=== PATIENT | male | born 1950 | race Caucasian/White ===

== ENCOUNTER 2019-01-02 07:40 | Inpatient (IN) ==
[2018-12-30 15:37] LABS: Appearance,Urine HAZY; Bilirubin,Urine NEG (NEG); Color,Urine YELLOW; Glucose,Urine (UA) NEGATIVE (NEG); Leukocyte Esterase,Urine NEG /uL (NEG); Protein,Urine NEG (NEG); Specific Gravity,Urine 1.008 (1.000-1.035); Urine Blood NEG mg/dL (<0.03); Urobilinogen,Urine NEG (NEG)
[~2019-01-02 07:40] MED LIST: 0.9 % SODIUM CHLORIDE 9 ML, KETOROLAC 30 MG, ROPIVACAINE HCL/PF 49.5 ML, EPINEPHrine 0.... IJ SCH; ceFAZolin 1 GM VIAL IV SCH
[2019-01-02] MEDS ORDERED: GENTAMICIN SULFATE 800 MG/20 ML VIAL IR ONE (10:17)
[2019-01-02] MEDS ORDERED: PROPOFOL 200 MG/20 ML VIAL IV ONE (10:55)
[2019-01-02] MEDS ORDERED: ROPIVACAINE HCL/PF 20 ML VIAL IJ ONE (10:55)
[2019-01-02] MEDS ORDERED: TRANEXAMIC ACID 1,000 MG/10 ML VIAL IV ONE ×2 (10:55→13:23)
[2019-01-02] MEDS ORDERED: DEXAMETHASONE 4 MG/ML VIAL IV ONE (10:55)
[2019-01-02] MEDS ORDERED: LIDOCAINE HCL/PF 100 MG/5 ML SYRINGE IV ONE (10:55)
[2019-01-02] MEDS ORDERED: ePHEDrine 50 MG/ML AMPUL IV ONE (10:55)
[2019-01-02] MEDS ORDERED: MIDAZOLAM 2 MG/2 ML VIAL IV ONE (10:55)
[2019-01-02] MEDS ORDERED: NALOXONE HCL 0.4 MG/ML VIAL IV PRN (12:44)
[2019-01-02] MEDS ORDERED: MEPERIDINE 25 MG/ML SYRINGE IV PRN (12:44)
[2019-01-02] MEDS ORDERED: ACETAMINOPHEN 1,000 MG/100 ML BOTTLE IV ONE (12:44)
[2019-01-02] MEDS ORDERED: fentaNYL 100 MCG/2 ML VIAL IV PRN (12:44)
[2019-01-02] MEDS ORDERED: FLUMAZENIL 0.1 MG/ML ML IV PRN (12:44)
[2019-01-02] MEDS ORDERED: PROMETHAZINE 25 MG/ML VIAL IV PRN (12:44)
[2019-01-02] MEDS ORDERED: BENZOCAINE/MENTHOL 1 LOZENGE PO PRN ×2 (12:44→13:23)
[2019-01-02] MEDS ORDERED: LACTATED RINGERS 250 ML IV PRN (12:44)
[2019-01-02] MEDS ORDERED: diphenhydrAMINE 50 MG/ML VIAL IV PRN (12:44)
[2019-01-02] MEDS ORDERED: IPRATROPIUM/ALBUTEROL 3 ML AMPUL.NEB NEB PRN (12:44)
[2019-01-02] MEDS ORDERED: ONDANSETRON 4 MG/2 ML VIAL IV PRN ×2 (12:44→13:23)
[2019-01-02] MEDS ORDERED: LACTATED RINGERS 1,000 ML IV SCH (12:45)
[2019-01-02] MEDS ORDERED: FLEETS ADULT ENEMA PR PRN (13:23)
[2019-01-02] MEDS ORDERED: ACETAMINOPHEN 325 MG TABLET PO PRN (13:23)
[2019-01-02] MEDS ORDERED: POLYETHYLENE GLYCOL 3350 17 GM PACKET PO PRN (13:23)
[2019-01-02] MEDS ORDERED: METHOCARBAMOL 1,000 MG/10 ML VIAL IV PRN (13:23)
[2019-01-02] MEDS ORDERED: BISACODYL 10 MG SUPP.RECT PR PRN (13:23)
[2019-01-02] MEDS ORDERED: MAGNESIUM HYDROXIDE 30 ML ORAL.SUSP PO PRN (13:23)
--- NOTE | 2019-01-02 14:15 | XRay Report ---
CLINICAL INFORMATION: Post-op total knee COMPARISON: None. FINDINGS: Total knee prostheses is anatomically aligned. No osseous abnormality. Soft tissue swelling seen as expected IMPRESSION: Negative Interpreted and Authenticated by: Nasir Samson 01/02/19
[2019-01-02] MEDS: 0.9 % SODIUM CHLORIDE 10 ML SYRINGE IV SCH ×2 (14:37→21:25)
[2019-01-02] MEDS: 0.9 % SODIUM CHLORIDE 1,000 ML IV SCH (14:37)
[2019-01-02] MEDS: HYDROcodone/APAP 10/325MG TABLET PO PRN ×3 (15:05→23:50)
[2019-01-02] MEDS: ceFAZolin 1 GM VIAL IV SCH (18:17)
[2019-01-02] MEDS ORDERED: SENNOSIDES 1 TABLET PO SCH (21:00)
[2019-01-02] MEDS ORDERED: OMEPRAZOLE 20 MG CAPSULE PO SCH (21:00)
[2019-01-02] MEDS: DOCUSATE SODIUM 100 MG CAPSULE PO SCH (21:25)
[2019-01-02] MEDS: APIXABAN 5 MG TABLET PO SCH (21:25)
[2019-01-03] MEDS: ceFAZolin 1 GM VIAL IV SCH (02:23)
[2019-01-03] MEDS: HYDROcodone/APAP 10/325MG TABLET PO PRN ×3 (03:54→12:12)
[2019-01-03] MEDS: 0.9 % SODIUM CHLORIDE 1,000 ML IV SCH ×2 (04:12→16:19)
[2019-01-03] MEDS: 0.9 % SODIUM CHLORIDE 10 ML SYRINGE IV SCH ×2 (06:04→16:19)
--- NOTE | 2019-01-03 07:30 | Operative Note ---
DATE OF OPERATION: 01/02/2019 PREOPERATIVE DIAGNOSIS: Degenerative joint disease of the left knee. POSTOPERATIVE DIAGNOSIS: Degenerative joint disease of the left knee. OPERATION: Left Estiven knee replacement. SURGEON: Justin De Dios MD APPOINTMENT SCHEDULER: David العراقي PA-C ANESTHESIA: General. TOURNIQUET TIME: 1 hour 42 minutes. ESTIMATED BLOOD LOSS: 100 mL SUMMARY OF PROCEDURE: General anesthesia was attained. The patient was in about 10 degrees of varus. She also had about a 10 degree flexion contracture. After prepping and draping, the tourniquet was put up. A midline incision was made from the quadriceps to the tibial tubercle. This was taken down sharply to the quadriceps and the medial retinaculum. These were split longitudinally. The patella showed exuberant spur formation. These were removed with a saw, osteotomes and rongeurs. We then did a patellar resection bringing the patella from the 26 mm thickness down to 15 using calipers. The patella was mobilized laterally. The arrays were placed. Two stab incisions were made in the proximal tibia and two in the distal femur. These were opened with blunt dissection and 2 unicortical pins were placed in each bone followed by the arrays. The knee was rotated to confirm center of rotation of the hip. We then checked anatomic landmarks on the femur to complete the registry of the femur and likewise on the tibia, and completed the registry on the tibia. Cuts were then made after balancing the flexion and extension gap. There was still some tightness noted medially. The cuts were made but I then did a distal medial collateral ligament release. After completion of this, we were able to confirm balancing of the flexion and extension gaps. This was confirmed using the robotic technology. The components were next cemented in. We were able to get full extension. The leg was now in about 5 degrees of valgus. These numbers were confirmed using the robotic technology. Excess cement was removed. The tourniquet was let down. All bleeding points were coagulated. The femur sized to a 7, the tibia to a 6, the insert to 10 mm and the patella to 35. The no touch test showed a lateral release was not needed. The quadriceps and medial retinaculum were closed with 4 sutures of buried #2 FiberWire and then a running locking 0 Maxon. The subcutaneous tissue was closed with buried interrupted 2-0 Monocryl and the skin was closed with a combination of mattress sutures of 2-0 nylon and sarah. A sterile compressive dressing was applied. The sponge and needle count was correct. The patient tolerated the procedure well and was taken to the recovery room in stable condition. [email or web address] Job ID: [id number] Doc ID: [id number] Justin De Dios MD
[2019-01-03] MEDS: DOCUSATE SODIUM 100 MG CAPSULE PO SCH (07:58)
[2019-01-03] MEDS: APIXABAN 5 MG TABLET PO SCH (07:59)
[2019-01-03] MEDS ORDERED: DILTIAZEM 180 MG CAP.XL.24H PO SCH (09:00)
--- NOTE | 2019-01-03 09:42 | Discharge Summary ---
Providers - Providers Patient information: Note initiated : 01/03/19 at 9:39 am Service Date, if different from initiated Date: [] Patient: Tato Love 68 y/o M admitted on 01/02/19 for Left Robotic Total Knee Arthroplasty. Chief Complaint: [] Date of admission: 01/02/19 Discharge date: 01/03/19 Attending physician: Justin De Dios Hospitalization Hospital course: l knee replacement 01/02. No complications. Ambulatory, tolerable pain POD 1. Home on eliquis, PT, hydrocodone Discharge diagnosis: L total knee replacement Secondary discharge diagnosis: atrial fibrillation Procedures: left TKR Exam - Exam Clean and dry: Yes Weight bearing status: full Ortho Discharge - TKA - Patient Instructions Diet: Regular Diet Activity: activity as tolerated Total Knee Protocol: For Total Knee: Start ROM HEIDY with stationary bike or rocking chair. Work on gaining full extension of knee. Posterior dislocation precautions provided. Hip abductor strengthening and gait training instructions provided. Apply Cryocuff as instructed. Dressing Care: May shower in 2 days - Follow Up Plan Follow Up Appointments: David العراقي PA-C [Physician Line Service Attendant] - 01/15/19 10:40 am Disposition: Home, Self-Care Prognosis: Good Rehab Potential: Good I certify that the patient requires SNF services: No Overall status at discharge: patient is not back to baseline - Orders For Discharge Prescriptions: HYDROcodone/APAP 10/325MG [[place] 10-325Mg] 1 - 2 tab PO Q4HP PRN #60 tab PRN Reason: Pain Level 3-6 Additional Discharge Orders: Physical Therapy at Discharge - TKA Location: None Selected Toilet Riser Discharge Order Location: None Selected Walker Location: None Selected Pending Studies Resuscitation Status Full Code Diet Regular Diet Start SunJan 02 Dinner Hydrocodone Bitart/Acetaminophen ([place] 10/325mg) 0 tab PO Q4HP PRN PRN Reason: PAIN LEVEL 3-6 Last Admin: 01/03/19 07:59 Dose: 2 tab Documented by: Admin: 01/03/19 03:54 Dose: 2 tab Documented by: Admin: 01/02/19 23:50 Dose: 2 tab Documented by: Admin: 01/02/19 19:34 Dose: 2 tab Documented by: Admin: 01/02/19 15:05 Dose: 2 tab Documented by: BLANCA Apixaban (Eliquis) 5 mg PO BID [facility] Last Admin: 01/03/19 07:59 Dose: 5 mg Documented by: Admin: 01/02/19 21:25 Dose: 5 mg Documented by: SARAH Diltiazem HCl (Cardizem Cd) 360 mg PO DAILY [facility] Last Admin: 01/03/19 07:58 Dose: 360 mg Documented by: BLAISE Docusate Sodium (Colace) 100 mg PO BID [facility] Last Admin: 01/03/19 07:58 Dose: 100 mg Documented by: Admin: 01/02/19 21:25 Dose: 100 mg Documented by: SARAH Sodium Chloride (Sodium Chloride 0.9%) 1,000 mls @ 75 mls/hr IV .[id number] [facility] Last Admin: 01/03/19 04:12 Dose: 75 mls/hr Documented by: Infusion: 01/03/19 03:57 Dose: 75 mls/hr Documented by: Admin: 01/02/19 14:37 Dose: 75 mls/hr Documented by: BLANCA Magnesium Hydroxide (Milk Of Magnesia) 30 ml PO BIDP PRN PRN Reason: Constipation Last Admin: 01/03/19 07:58 Dose: 30 ml Documented by: BLAISE Omeprazole (Prilosec) 20 mg PO HS [facility] Last Admin: 01/02/19 21:25 Dose: 20 mg Documented by: SARAH Polyethylene Glycol (Miralax) 17 gm PO DAILYP PRN PRN Reason: Constipation Last Admin: 01/03/19 07:58 Dose: 17 gm Documented by: BLAISE Senna (Senokot) 2 tab PO HS [facility] Last Admin: 01/02/19 21:25 Dose: 2 tab Documented by: SARAH Sodium Chloride (Saline Flush) 10 ml IV Q8 [facility] Last Admin: 01/03/19 06:04 Dose: Not Given Documented by: Admin: 01/02/19 21:25 Dose: Not Given Documented by: Admin: 01/02/19 14:37 Dose: Not Given Documented by: BLANCA Shift Summary 01/03/19 05:09 Shift Summary by Raheem Staley Pt has rested a bit tonight. LT knee pain well controlled w/ PRN Q4hr [place] 10 (2) PO - last dose given @ 0355. Cryo-cuff recharged frequently the 1st half of the shift - currently off. AV boots on while in bed. Mateo wrap LT leg - C,D,I. NS infusing @ 75ml/hr to his LT F/A. VS - WNL on R.A.. He has been up AMB in [place] to Nsg desk & back to bed x1, as well as to & from BR - gait mod stable w/ FWW & SBA. He has been voiding per urinal - last PVR scan @ 0355 was 99ml - no further scans needed. Pt is A&O x4, calm, pleasant, & cooperative. Initialized on 01/03/19 05:09 - END OF NOTE
== END 2019-01-03 12:45 | disposition home or self-care (01) | DRG 470 ==
LOC: MEDSUR 07:40
PROVIDERS: ADMIT Orthopaedic Surgery Foot and Ankle Surgery; ATTEND Orthopaedic Surgery Foot and Ankle Surgery

== ENCOUNTER 2019-10-02 08:40 | Inpatient (IN) ==
[2019-09-26 12:11] LABS: Appearance,Urine HAZY; Bilirubin,Urine NEG (NEG); Color,Urine AMBER; Culture Indicated,Urine NO; Glucose,Urine (UA) NEGATIVE (NEG); Ketones,Urine NEG (NEG); Leukocyte Esterase,Urine NEG /uL (NEG); Nitrate,Urine NEG (NEG); Protein,Urine NEG (NEG); Specific Gravity,Urine 1.019 (1.000-1.035); Urine Blood NEG mg/dL (<0.03); Urobilinogen,Urine NEG (NEG)
[2019-09-26 13:18] LABS: Basophils # (Auto) 0.1 K/mcL (0.0-0.3); Basophils % (Auto) 1.2 % (0.0-2.0); Eosinophils # (Auto) 0.5 K/mcL (0.0-0.7); Eosinophils % (Auto) 6.8 % (0.0-7.0); Granulocytes % (Auto) 46.9 % (38.0-78.0); Hemoglobin 15.6 g/dL (13.5-16.5); Lymphocytes # (Auto) 2.6 K/mcL (1.5-4.8); Lymphocytes % (Auto) 35.1 % (15.5-49.0); Mean Corpuscular HGB Conc 33.9 g/dL (31.0-36.0); Mean Platelet Volume 7.7 fL (7.4-10.4); Monocytes # (Auto) 0.7 K/mcL (0.1-0.9); Platelet Count 264 K/mcL (140-440); RBC 4.69 M/mcL (4.50-5.90); Red Cell Distribution Width 13.4 % (11.5-14.5); WBC 7.4 K/mcL (4.5-11.0)
[2019-09-26 14:06] LABS: INR 1.2 (0.9-1.1); Prothrombin Time 15.2 sec (11.9-14.5)
[2019-09-26 14:40] LABS: Blood Urea Nitrogen 19 mg/dl (8-23); Calcium 9.7 mg/dl (8.6-10.4); Carbon Dioxide 21 mmol/L (22-30); Chloride 102 mmol/L (96-108); Glomerular Filtration Rate 91; Glucose 101 mg/dL (70-105)
[~2019-10-02 08:40] MED LIST changes: +CELECOXIB 200 MG CAPSULE PO SCH; +IPRATROPIUM/ALBUTEROL 3 ML AMPUL.NEB NEB PRN; +PREGABALIN 75 MG CAPSULE PO SCH; +SCOPOLAMINE 1 PATCH PATCH TOPICAL PRN; -ceFAZolin 1 GM VIAL IV SCH; +ceFAZolin 3 GM in DEXTROSE 5% IN WATER 50 ML IV SCH; +oxyCODONE 10 MG TAB.ER.12H PO SCH
[2019-10-02] MEDS ORDERED: PNEUMOCOCCAL 23-VAL P-SAC VAC 0.5 ML SYRINGE IM ONE (09:33)
[2019-10-02] MEDS ORDERED: KETAMINE 100 MG/ML ML IV ONE (12:41)
[2019-10-02] MEDS ORDERED: LIDOCAINE HCL/PF 100 MG/5 ML SYRINGE IV ONE (12:41)
[2019-10-02] MEDS ORDERED: GLYCOPYRROLATE 0.2 MG/ML VIAL IV ONE (12:41)
[2019-10-02] MEDS ORDERED: PHENYLEPHRINE 10 MG/ML VIAL IV ONE (12:41)
[2019-10-02] MEDS ORDERED: ROPIVACAINE HCL/PF 20 ML VIAL IJ ONE (12:41)
[2019-10-02] MEDS ORDERED: KETOROLAC 30 MG/ML VIAL IV ONE (12:41)
[2019-10-02] MEDS ORDERED: ePHEDrine 50 MG/ML AMPUL IV ONE (12:41)
[2019-10-02] MEDS ORDERED: ONDANSETRON 4 MG/2 ML VIAL IV ONE (12:41)
[2019-10-02] MEDS ORDERED: PROPOFOL 200 MG/20 ML VIAL IV ONE (12:41)
[2019-10-02] MEDS ORDERED: GENTAMICIN SULFATE 800 MG/20 ML VIAL IR ONE (13:09)
[2019-10-02] MEDS ORDERED: IPRATROPIUM/ALBUTEROL 3 ML AMPUL.NEB NEB PRN (14:48)
[2019-10-02] MEDS ORDERED: NALOXONE HCL 0.4 MG/ML VIAL IV PRN (14:48)
[2019-10-02] MEDS ORDERED: FLUMAZENIL 0.1 MG/ML ML IV PRN (14:48)
[2019-10-02] MEDS ORDERED: LACTATED RINGERS 250 ML IV PRN (14:48)
[2019-10-02] MEDS ORDERED: BENZOCAINE/MENTHOL 1 LOZENGE PO PRN ×2 (14:48→14:49)
[2019-10-02] MEDS ORDERED: fentaNYL 100 MCG/2 ML VIAL IV PRN (14:48)
[2019-10-02] MEDS ORDERED: METOPROLOL TARTRATE 5 MG/5 ML VIAL IV PRN (14:48)
[2019-10-02] MEDS ORDERED: LABETALOL 5 MG/ML ML IV PRN (14:48)
[2019-10-02] MEDS ORDERED: ACETAMINOPHEN 1,000 MG/100 ML BOTTLE IV ONE ×2 (14:48→15:00)
[2019-10-02] MEDS ORDERED: METHOCARBAMOL 1,000 MG/10 ML VIAL IV PRN (14:48)
[2019-10-02] MEDS ORDERED: TRANEXAMIC ACID 1,000 MG/10 ML VIAL IV ONE (14:49)
[2019-10-02] MEDS ORDERED: MAGNESIUM HYDROXIDE 30 ML ORAL.SUSP PO PRN (14:49)
[2019-10-02] MEDS ORDERED: ACETAMINOPHEN 325 MG TABLET PO PRN (14:49)
[2019-10-02] MEDS ORDERED: POLYETHYLENE GLYCOL 3350 17 GM PACKET PO PRN (14:49)
[2019-10-02] MEDS ORDERED: BISACODYL 10 MG SUPP.RECT PR PRN (14:49)
[2019-10-02] MEDS ORDERED: METHOCARBAMOL 750 MG TABLET PO PRN (14:49)
[2019-10-02] MEDS ORDERED: ONDANSETRON 4 MG/2 ML VIAL IV PRN (14:49)
--- NOTE | 2019-10-02 14:57 | Brief Operative Note ---
Date of procedure: 10/02/19 Pre-op diagnosis: djd right knee Post-op diagnosis: same Procedure: AARON r tkr Grafts/Implants: Yes (triathlon knee) Anesthesia: GETA Complications: none Surgeon: Justin De Dios Theatrical Trouper: David العراقي Estimated blood loss (cc): 250 Tourniquet Time (Minutes): 90 Specimens Removed/Pathology: none sent Condition: stable Disposition: PACU
[2019-10-02] MEDS ORDERED: LACTATED RINGERS 1,000 ML IV SCH (15:00)
[2019-10-02] MEDS: 0.9 % SODIUM CHLORIDE 1,000 ML IV SCH (16:01)
--- NOTE | 2019-10-02 16:29 | XRay Report ---
CLINICAL INFORMATION: Post-op total knee. COMPARISON: None. FINDINGS: Total knee prostheses is anatomically aligned. No osseous abnormality. Periarticular gas and soft tissue swelling seen as expected IMPRESSION: Negative Interpreted and Authenticated by: Nasir Samson 10/02/19
[2019-10-02] MEDS: HYDROcodone/APAP 10/325MG TABLET PO PRN ×2 (18:41→23:01)
[2019-10-02] MEDS ORDERED: ASPIRIN 81 MG TAB.CHEW PO SCH (21:00)
[2019-10-02] MEDS ORDERED: OMEPRAZOLE 20 MG CAPSULE PO SCH (21:00)
[2019-10-02] MEDS ORDERED: SENNOSIDES 1 TABLET PO SCH (21:00)
[2019-10-02] MEDS: APIXABAN 5 MG TABLET PO SCH (21:44)
[2019-10-02] MEDS: DOCUSATE SODIUM 100 MG CAPSULE PO SCH (21:44)
[2019-10-02] MEDS: ceFAZolin 1 GM VIAL IV SCH (21:44)
[2019-10-02] MEDS: 0.9 % SODIUM CHLORIDE 10 ML SYRINGE IV SCH (22:21)
[2019-10-03] MEDS: HYDROcodone/APAP 10/325MG TABLET PO PRN ×2 (04:16→08:09)
[2019-10-03] MEDS: ceFAZolin 1 GM VIAL IV SCH (04:42)
[2019-10-03] MEDS: 0.9 % SODIUM CHLORIDE 1,000 ML IV SCH (04:43)
[2019-10-03] MEDS: 0.9 % SODIUM CHLORIDE 10 ML SYRINGE IV SCH (05:08)
[2019-10-03 06:13] LABS: Hematocrit 37.7 % (41.0-55.0); Hemoglobin 12.9 g/dL (13.5-16.5)
[2019-10-03 06:22] LABS: INR 1.2 (0.9-1.1); Prothrombin Time 14.9 sec (11.9-14.5)
--- NOTE | 2019-10-03 07:37 | Discharge Summary ---
Providers - Providers Patient information: Note initiated : 10/03/19 at 7:35 am Service Date, if different from initiated Date: [] Patient: Tato Love 68 y/o M admitted on 10/02/19 for Right Robotic Total Knee Arthroplasty. Chief Complaint: [] Discharge date: 10/04/19 Hospitalization Discharge diagnosis: right total knee replacement Procedures: right AARON knee Complications: none Exam - Exam Clean and dry: Yes Weight bearing status: full Ortho Discharge - TKA - Patient Instructions Diet: Regular Diet Total Knee Protocol: For Total Knee: Start ROM HEIDY with stationary bike or rocking chair. Work on gaining full extension of knee. Posterior dislocation precautions provided. Hip abductor strengthening and gait training instructions provided. Apply Cryocuff as instructed. Additional Instructions: physical - Follow Up Plan Follow Up Appointments: Justin De Dios MD [Physician] - Disposition: Home, Self-Care Prognosis: Good Rehab Potential: Good I certify that the patient requires SNF services: No - Orders For Discharge Prescriptions: RX: HYDROcodone/APAP 10/325MG [[place] 10-325Mg] 1 - 2 tab PO Q4HP PRN #60 tab PRN Reason: Pain Level 3-6 Prescription Printed Additional Discharge Orders: Physical Therapy at Discharge - TKA Location: None Selected Pending Studies Resuscitation Status Full Code Diet Regular Diet Start SunOct 02 Dinner Hydrocodone Bitart/Acetaminophen ([place] 10/325mg) 0 tab PO Q4HP PRN PRN Reason: PAIN LEVEL 3-6 Last Admin: 10/03/19 04:16 Dose: 1 tab Documented by: Admin: 10/02/19 23:01 Dose: 1 tab Documented by: Admin: 10/02/19 18:41 Dose: 1 tab Documented by: CARMELLA Apixaban (Eliquis) 5 mg PO BID [facility] Last Admin: 10/02/19 21:44 Dose: 5 mg Documented by: CARMELLA Docusate Sodium (Colace) 100 mg PO BID [facility] Last Admin: 10/02/19 21:44 Dose: 100 mg Documented by: CARMELLA Sodium Chloride (Sodium Chloride 0.9%) 1,000 mls @ 75 mls/hr IV .[id number] [facility] Last Admin: 10/03/19 04:43 Dose: Not Given Documented by: Infusion: 10/03/19 04:21 Dose: 0 mls/hr Documented by: Admin: 10/02/19 16:01 Dose: 75 mls/hr Documented by: CAL Methocarbamol (Robaxin) 750 mg PO Q6HP PRN PRN Reason: Muscle Spasm Last Admin: 10/02/19 21:44 Dose: 750 mg Documented by: CARMELLA Omeprazole (Prilosec) 20 mg PO HS [facility] Last Admin: 10/02/19 21:44 Dose: 20 mg Documented by: CARMELLA Senna (Senokot) 2 tab PO HS [facility] Last Admin: 10/02/19 21:44 Dose: 2 tab Documented by: CARMELLA Sodium Chloride (Saline Flush) 10 ml IV Q8 [facility] Last Admin: 10/03/19 05:08 Dose: 10 ml Documented by: Admin: 10/02/19 22:21 Dose: Not Given Documented by: CARMELLA Shift Summary 10/03/19 03:41 Shift Summary by Norma North Addendum entered by Norma North, R.N. 10/03/19 03:46: Dressing to right knee CDI. CMS intact. Original Note: Pt is A&Ox4. VSS on RA. Up w/SBA, FWW, GB. Ambulated in hallway x1 & to/from BR a few times. Voiding, but PVR still somewhat high (@ 0120, pt voided 850cc w/PVR of 413cc, no discomfort). Pt got [place] 10 mg (1 tab) x2 and Robaxin for pain. CPM was used (0-45). IV to LFA w/NS @ 75 ml/hr. Will update with verbal report. Initialized on 10/03/19 03:41 - END OF NOTE
[2019-10-03] MEDS: DOCUSATE SODIUM 100 MG CAPSULE PO SCH (08:09)
[2019-10-03] MEDS: APIXABAN 5 MG TABLET PO SCH (08:09)
--- NOTE | 2019-10-03 08:49 | Operative Note ---
DATE OF OPERATION: 10/02/2019 PREOPERATIVE DIAGNOSIS: Degenerative joint disease of the right knee. POSTOPERATIVE DIAGNOSIS: Degenerative joint disease of the right knee. OPERATION: Right total knee replacement with robotic assistance. SURGEON: Justin De Dios M.D. GROUNDSKEEPER: David العراقي PA-C. The PA's assistance was required for the safe and efficient completion of the entire case. This provider's expertise and technical skill were required throughout the case. The PA assisted with preoperative coordination, intraoperative retraction, wound closure, dressing and splint application, as well as postoperative documentation and care coordination. ANESTHESIA: General. TOURNIQUET TIME: 90 minutes. ESTIMATED BLOOD LOSS: 250 mL. SUMMARY OF PROCEDURE: General anesthesia was attained. A midline incision was made. A tourniquet was used. The incision was taken down to the quadriceps and medial retinaculum. A subvastus approach was made and accomplished. Two stab incisions were made in the femur and two in the tibia. The pins were placed in each bone for the arrays. The arrays were then screwed in. A medial release was done. The anterior menisci were resected. The ACL was released. The patella was mobilized laterally. Checkpoints were placed. The hip center was located by internal rotation. The medial and lateral malleoli were confirmed in terms of location. Forty anatomic landmarks were registered on the femur and then forty on the tibia and then these were confirmed. The robot was then brought in to make the cuts. All the cuts were then accomplished and the bone was removed. After the bone removal, the tibia was trialed and the tibia was a 7. It was externally rotated. The bone was then drilled and punched. A femoral trial was next placed and two drill holes made in the femur. It was lateralized. The insert sized to a 9. I thought things were overall too tight. We therefore added 2 mm to the tibia cut using the Estiven and then we got an excellent balance of a full range of motion with medial and lateral stability, and this was confirmed on the robot. The trials were left in. The patella was everted. A measured resection was done of the patella cutting down from 26 to 15. The patella sized to a 39. All the bone surfaces were thoroughly irrigated. A block was placed in the capsule and periosteum throughout. The components were cemented in. They were cured in full extension. The patella component was cemented and clamped. Excess was removed. The tourniquet was let down. All bleeding points were coagulated. The wound was then closed. The quadriceps and medial retinaculum were closed with running Stratafix. The subcutaneous tissue was closed with buried 2-0 Monocryl and the skin was closed with sarah. A sterile compressive dressing was applied. The no-touch technique during the surgery showed a lateral release was not needed. The sponge and needle count was correct. The patient tolerated the procedure well and was taken to the recovery room in stable condition. [email or web address]:[email or web address] Job ID: [id number] Doc ID: [id number] Justin De Dios MD
[2019-10-03] MEDS ORDERED: DILTIAZEM 120 MG CAP.XL.24H PO SCH (09:00)
== END 2019-10-03 09:30 | disposition home or self-care (01) | DRG 470 ==
LOC: MEDSUR 08:40
PROVIDERS: ADMIT Orthopaedic Surgery Foot and Ankle Surgery; ATTEND Orthopaedic Surgery Foot and Ankle Surgery